=== PATIENT | male | born 1930 | race Caucasian/White ===

== ENCOUNTER 2017-04-04 09:39 | Emergency (ER) | payer MEDICARE, BC ==
[~2017-04-04] VITALS: Ht 175.3 cm; Wt 77.6 kg
[~2017-04-04 09:39] MED LIST: /ESCI10TA PO; /ROPI1TA PO; ARIC10TA PO; CYCL10TA3 PO; FISH1000 PO; FLUT50SP; IRONTAB3 PO; MELA3TAB PO; OMEP20CA3 PO; TOPR25TA PO; VITA-121 PO; VITAMIN B PO; WARF2TAB44 PO; ZALE5CA PO; [UNRECOGNIZED DRUG - CODE] PO; [UNRECOGNIZED DRUG - OTHER] PO
[2017-04-04 09:42] VITALS: BP 133/70
[2017-04-04] MEDS ORDERED: NAME28CA PO (09:58)
[2017-04-04] MEDS ORDERED: VERA40TA PO (09:58)
[2017-04-04] MEDS ORDERED: QUET1TAB7 PO (09:58)
[2017-04-04] MEDS ORDERED: ELIQ2.5T PO (09:58)
[2017-04-04] MEDS ORDERED: VITA100L PO (09:58)
[2017-04-04] MEDS ORDERED: ACETAMINOPHEN 325 MG TAB PO ONE (10:15)
--- NOTE | 2017-04-04 10:49 | REP ---
Clinical: Altered mental status. Comparison: None. Findings: Age-related atrophy and microvascular ischemic changes are appreciated. The ventricles and sulci are symmetric. Chamberlain-white differentiation is maintained. There is no evidence for acute intracranial hemorrhage, mass/mass effect, pathology or infarction. No extra-axial fluid collection. Calvarium is intact. Paranasal sinuses and mastoid air cells are clear. Impression: Age related atrophy and microvascular ischemic changes. No acute intracranial hemorrhage, infarction, or mass/mass effect. Signed by Jonh Gamino MD 04/04/2017 10:41 A
--- NOTE | 2017-04-04 10:51 | REP ---
Clinical: Trauma. Technique: Axial noncontrast images from the skull base to the thoracic inlet with coronal and sagittal re-formations. Findings: Osteopenia and moderate to advanced multilevel degenerative changes include bridging osteophytes, endplate sclerosis and disc space narrowing as well as uncovertebral hypertrophy. Alignment and lordosis maintained. No acute fracture / compression injury or subluxation. Spinal canal is patent. Posterior elements and spinous processes are intact. Paravertebral soft tissues are normal. Impression: Moderate to early advanced multilevel degenerative disc disease. No acute fracture / compression injury or subluxation. Signed by Jonh Gamino MD 04/04/2017 10:43 A
[2017-04-04 10:56] LABS: BASO % 0.3 % (0.0-1.0); EOS # 0.2 K/mm3 (0.0-0.50); LARGE UNSTAINED CELL # 0.1 K/mm3 (0.0-0.4); LARGE UNSTAINED CELL % 1.5 % (0.0-4.0); LYMPH # 0.7 K/mm3 (1.5-4.5); LYMPH % 10.3 % (24.0-44.0); MEAN CORPUSCULAR HEMOGLOBIN 34.8 pg (27.0-33.0); MEAN CORPUSCULAR HGB CONC 33.5 g/dl (32.0-36.5); MEAN CORPUSCULAR VOLUME 103.9 fl (80.0-96.0); MONO # 0.4 K/mm3 (0.0-0.8); MONO % 5.6 % (0.0-5.0); NEUTROPHILS # 4.9 K/mm3 (1.8-7.7); NEUTROPHILS % 78.4 % (36.0-66.0); PLATELET COUNT, AUTOMATED 214 k/mm3 (150-450); RED CELL DISTRIBUTION WIDTH 14.1 % (11.5-14.5); WHITE BLOOD COUNT 6.2 K/mm3 (4.0-10.0)
[2017-04-04 11:12] LABS: ANION GAP 5 MEQ/L (8-16); BLOOD UREA NITROGEN 20 MG/DL (7-18); CALCIUM LEVEL 8.4 MG/DL (8.8-10.2); CARBON DIOXIDE LEVEL 29 MEQ/L (21-32); CHLORIDE LEVEL 108 MEQ/L (98-107); CREATININE FOR GFR 0.98 MG/DL (0.70-1.30); GLOMERULAR FILTRATION RATE > 60.0 (>35); GLUCOSE, FASTING 113 MG/DL (83-110); POTASSIUM SERUM 4.2 MEQ/L (3.5-5.1); SODIUM LEVEL 142 MEQ/L (136-145)
== END 2017-04-04 11:32 | disposition home or self-care (01) ==
LOC: M ED 09:39
DX: S29.012A Strain of muscle and tendon of back wall of thorax, initial encounter (principal); S13.4XXA Sprain of ligaments of cervical spine, initial encounter; Z79.01 Long term (current) use of anticoagulants; X58.XXXA Exposure to other specified factors, initial encounter; Y92.89 Other specified places as the place of occurrence of the external cause; Y93.89 Activity, other specified; Y99.9 Unspecified external cause status